=== PATIENT | female | born 2000 | race Asian ===

== ENCOUNTER 2023-08-28 14:09 | Inpatient (IN) ==
[2023-08-28 15:32] LABS: ABS Basophils 0.1 10^3/uL (0.0-0.1); ABS Lymphocytes 1.8 10^3/uL (1.0-4.8); ABS Monocytes 0.7 10^3/uL (0.0-0.9); ABS Neutrophils 7.9 10^3/uL (1.5-7.6); Eosinophil % 0.4 %; Hematocrit 40.2 % (35-45); Hemoglobin 13.8 g/dL (11.5-14.3); Mean Corpuscular Hemoglobin 28.5 pg (27-33); Mean Corpuscular Hgb Conc 34.3 g/dL (31-36); Mean Corpuscular Volume 83.1 fL (80-97); Mean Platelet Volume 7.6 fL (7.5-11.2); Platelet Count 259 10^3/uL (150-450); Red Blood Count 4.84 10^6/uL (3.63-4.92); Red Cell Distribution Width 13.5 % (12-17); White Blood Count 10.6 10^3/uL (3.8-11.8)
[2023-08-28 15:35] LABS: Urine Appearance Clear; Urine Bilirubin Negative (Negative); Urine Blood Negative (Negative); Urine Color Light-Yellow; Urine Glucose Negative (Negative); Urine Ketones Negative (Negative); Urine Nitrite Negative (Negative); Urine Protein Negative (Negative); Urine Specific Gravity 1.014 (1.002-1.030); Urine Urobilinogen Negative (Negative)
[2023-08-28 15:58] LABS: ALT 12 U/L (7-52); AST 20 U/L (13-39); Albumin 4.6 g/dL (3.2-5.2); Albumin/Globulin Ratio 1.5 (1-3); Alcohol, S < 13 mg/dL (<13); Alkaline Phosphatase 63 U/L (35-149); Anion Gap 8 mmol/L (2-16); Blood Urea Nitrogen 12 mg/dL (6-24); CO2 Carbon Dioxide 26 mmol/L (22-32); Chloride 105 mmol/L (101-111); Creatinine, Serum 0.78 mg/dL (0.51-0.95); Globulin 3.1 g/dL (2-4); Glucose 106 mg/dL (70-100); Potassium 4.1 mmol/L (3.5-5.0); Sodium 139 mmol/L (135-145); Total Bilirubin 0.3 mg/dL (0.2-1.0); Total Protein 7.7 g/dL (6.4-8.9); eGFR CKD-EPI 110.8 (>60)
[2023-08-28 16:04] LABS: HCG Pregnancy < 0.60 mIU/mL
[2023-08-28 16:12] LABS: TSH Ultra Thyroid Stim Horm 1.73 mcIU/mL (0.34-5.60)
[2023-08-28 20:37] LABS: Urine Benzodiazepine Screen None Detected (None Detect); Urine Cannabinoids Screen None Detected (None Detect); Urine Opiates Screen None Detected (None Detect)
[2023-08-28] MEDS ORDERED: Al Hydrox/Mg Hydrox/Simet LIQ 30 ML UDC PO PRN (22:27)
[2023-08-29 08:45] LABS: HDL Cholesterol 60.3 mg/dL
[2023-08-29] MEDS: Vitamin THERAPEUTIC TAB PO SCH (09:24)
[2023-09-05] MEDS: Lithium Carbonate ER 450mg TAB PO SCH (20:51)
[2023-09-10] MEDS: Lithium Carbonate ER 450mg TAB PO SCH (20:03)
[2023-09-11 08:41] VITALS: BP 106/73
== END 2023-09-11 12:02 | disposition home or self-care (01) | DRG 885 ==
LOC: ED 14:09 → EDHOLD 22:47 → BSU 23:03
PROVIDERS: ADMIT Student in an Organized Health Care Education/Training Program; ATTEND Psychiatry & Neurology Psychiatry